=== PATIENT | male | born 1985 | race Caucasian/White ===

== ENCOUNTER 2017-10-22 18:59 | Emergency (ER) | payer SELFPAY ==
[~2017-10-22] VITALS: Ht 193 cm; Wt 86.2 kg
--- NOTE | 2017-10-22 20:15 | NUR ---
PATIENT WAS MSE BY DR ISHAAN GUTIERREZ 1.
--- NOTE | 2017-10-22 22:24 | NUR ---
Patient discharged to home in stable conditon. Written and verbal after care instructions given. Patient verbalizes understanding of instructions.
== END 2017-10-22 22:30 | disposition home or self-care (01) ==
LOC: ER 19:07
DX: I80.3 Phlebitis and thrombophlebitis of lower extremities, unspecified (principal); Z88.0 Allergy status to penicillin; Z88.8 Allergy status to other drugs, medicaments and biological substances; F17.210 Nicotine dependence, cigarettes, uncomplicated
CPT/HCPCS: A4663

== ENCOUNTER 2017-10-25 19:28 | Emergency (ER) | payer SELFPAY ==
[~2017-10-25] VITALS: Ht 193 cm; Wt 83.9 kg
[2017-10-25] MEDS ORDERED: BACTRIM (20:02)
--- NOTE | 2017-10-25 20:09 | NUR ---
pt [id number]. pt here with c/o worsening LLE pain and swelling. pt in no respiratory distress. respirations are equal and unlabored. pt able to speak in clear and complete sentences with no acute distress. US called per ALBER.
--- NOTE | 2017-10-25 22:21 | NUR ---
Patient discharged to home in stable conditon. Written and verbal after care instructions given. Patient verbalizes understanding of instructions.
== END 2017-10-25 22:28 | disposition home or self-care (01) ==
LOC: ER 19:33
DX: I80.3 Phlebitis and thrombophlebitis of lower extremities, unspecified (principal); F17.210 Nicotine dependence, cigarettes, uncomplicated; Z88.0 Allergy status to penicillin; Z88.5 Allergy status to narcotic agent; Z88.8 Allergy status to other drugs, medicaments and biological substances; Z79.2 Long term (current) use of antibiotics
CPT/HCPCS: A4663

== ENCOUNTER 2017-10-31 15:52 | Emergency (ER) | payer SELFPAY ==
[~2017-10-31] VITALS: Ht 193 cm; Wt 82.6 kg
[~2017-10-31 15:52] MED LIST: BACTRIM
[2017-10-31 17:45] LABS: BASOPHILS # (AUTO) 0.1 K/uL (0.0-8.0); BASOPHILS % (AUTO) 0.7 % (0.0-2.0); EOSINOPHILS # (AUTO) 0.4 K/uL (0.0-0.7); EOSINOPHILS % (AUTO) 4.8 % (0.0-7.0); HEMOGLOBIN 14.2 g/dL (12.5-16.3); LYMPHOCYTES # (AUTO) 2.6 K/uL (20.0-40.0); LYMPHOCYTES % (AUTO) 30.5 % (20.5-51.5); MEAN CORPUSCULAR HEMOGLOBIN 30.4 uug (23.8-33.4); MEAN CORPUSCULAR HGB CONC 35 g/dL (32.5-36.3); MONOCYTES # (AUTO) 0.8 K/uL (2.0-10.0); MONOCYTES % (AUTO) 9.8 % (0.0-11.0); NEUTROPHILS # (AUTO) 4.6 K/uL (1.8-8.9); NEUTROPHILS % (AUTO) 54.2 % (38.5-71.5); PLATELET COUNT (AUTO) 310 K/uL (152-348); RED BLOOD CELL COUNT(AUTO) 4.66 MIL/uL (4.06-5.63); WHITE BLOOD COUNT (AUTO) 8.4 K/uL (3.6-10.2)
[2017-10-31 17:49] LABS: CREATININE 1.1 mg/dL (0.6-1.3)
[2017-10-31 18:00] LABS: BILIRUBIN,DIRECT 0.1 mg/dL (0.0-0.2); BILIRUBIN,TOTAL 0.3 mg/dL (0.2-1.0); TOTAL PROTEIN, SERUM 6.7 g/dL (6.4-8.2)
--- NOTE | 2017-10-31 18:33 | NUR ---
PT WAS EVALUATED BY DR KASPER. PT WAS D/C TO HOME. D/C INSTRUCTIONS GIVEN TO THE PT.
[2017-10-31 18:38] VITALS: BP 139/82
== END 2017-10-31 18:42 | disposition home or self-care (01) ==
LOC: ER 15:52
DX: L03.116 Cellulitis of left lower limb (principal); F17.210 Nicotine dependence, cigarettes, uncomplicated; Z88.0 Allergy status to penicillin; Z88.5 Allergy status to narcotic agent; Z88.8 Allergy status to other drugs, medicaments and biological substances; Z79.2 Long term (current) use of antibiotics
CPT/HCPCS: 36415; 70030-TC; 73700; 83605; 85025; 85730; 87040; A4663

== ENCOUNTER 2017-11-11 20:04 | Emergency (ER) | payer SELFPAY ==
[~2017-11-11] VITALS: Ht 193 cm; Wt 86.2 kg
--- NOTE | 2017-11-11 20:17 | NUR ---
Dr. Paul at bedside for MSE.
--- NOTE | 2017-11-11 20:30 | NUR ---
Patient discharged to home in stable conditon. Written and verbal after care instructions given. Patient verbalizes understanding of instructions. Patient ambulated out of ER with steady gait, no acute signs of distress, VSS, all belongings taken.
[2017-11-11 20:32] VITALS: BP 147/99
== END 2017-11-11 20:33 | disposition home or self-care (01) ==
LOC: ER 20:06
DX: I80.3 Phlebitis and thrombophlebitis of lower extremities, unspecified (principal); F17.210 Nicotine dependence, cigarettes, uncomplicated; Z88.0 Allergy status to penicillin; Z88.5 Allergy status to narcotic agent; Z88.8 Allergy status to other drugs, medicaments and biological substances; Z79.2 Long term (current) use of antibiotics
CPT/HCPCS: A4663